=== PATIENT | female | born 2000 | race American Indian/Alaskan Native ===

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

== ENCOUNTER 2022-03-18 07:12 | Outpatient (CLI) | payer OTHER ==
[2022-03-18 21:39] VITALS: BP 123/61
== END 2022-03-18 10:50 | disposition home or self-care (01) ==
LOC: LAB 07:12 → APU 10:34 → LAB 10:50
PROVIDERS: ATTEND Obstetrics & Gynecology
DX: O26.892 Other specified pregnancy related conditions, second trimester (principal); O30.042 Twin pregnancy, dichorionic/diamniotic, second trimester; Z67.41 Type O blood, Rh negative; Z3A.27 27 weeks gestation of pregnancy
CPT/HCPCS: 86850; 86900; 86901; 96372; J2790